=== PATIENT | female | born 1960 | race American Indian/Alaskan Native ===

== ENCOUNTER 2021-12-02 12:11 | Emergency (ER) | payer OTHER ==
[2021-12-02 13:52] VITALS: BP 136/75
--- NOTE | 2021-12-02 14:31 | Emergency Department Report ---
ED Animal Bite HPI - General Chief Complaint: Extremity Injury, Upper Stated Complaint: DOG BITE Time Seen by Provider: 12/02/21 14:12 Source: patient Mode of arrival: Ambulatory Limitations: No Limitations - History of Present Illness Initial Comments: 61-year-old -[place] female presents to the emergency room stating that she has been bitten by her dog while she was breaking up them from fighting. She states that her right hand was injured. Patient went to [facility] and was noted to have an open fracture of her right middle proximal phalanx. The wound dressed it and sent her over to be evaluated. Patient reports that she has no known drug allergies. She states she is up-to-date on her tetanus shot. MD Complaint: animal bite -: This afternoon Right: Hand Animal: dog Description: household pet Context: animals fighting Associated Symptoms: bleeding Treatments Prior to Arrival: wound dressing(s), irrigation - Related Data Previous Rx's Medication Instructions Recorded Last Taken Type Amoxicillin/Potassium Clav 1 each PO BID #20 tablet 12/02/21 Unknown Rx [Augmentin 875-125 Tablet] cephALEXin [Keflex] 500 mg PO Q8HR #30 cap 12/02/21 Unknown Rx traMADoL [Ultram 50 MG tab] 50 mg PO Q6HR PRN #12 tablet 12/02/21 Unknown Rx Allergies Allergy/AdvReac Type Severity Reaction Status Date / Time No Known Allergies Allergy Unverified 12/02/21 14:35 ED Review of Systems ROS: Stated complaint: DOG BITE Other details as noted in HPI Comment: All other systems reviewed and negative Constitutional: no symptoms reported ED Past Medical Hx - Medications Home Medications: Home Medications Medication Instructions Recorded Confirmed Last Taken Type Amoxicillin/Potassium Clav 1 each PO BID #20 tablet 12/02/21 Unknown Rx [Augmentin 875-125 Tablet] cephALEXin [Keflex] 500 mg PO Q8HR #30 cap 12/02/21 Unknown Rx traMADoL [Ultram 50 MG tab] 50 mg PO Q6HR PRN #12 tablet 12/02/21 Unknown Rx ED Physical Exam - General Limitations: No Limitations General appearance: alert, in no apparent distress - Head Head exam: Present: atraumatic, normocephalic - Eye Eye exam: Present: normal appearance - ENT ENT exam: Present: normal external ear exam - Neck Neck exam: Present: normal inspection, full ROM - Respiratory Respiratory exam: Absent: respiratory distress, accessory muscle use - Cardiovascular Cardiovascular Exam: Present: regular rate - Back Exam Back exam: Present: normal inspection - Neurological Exam Neurological exam: Present: alert, oriented X3, normal gait - Psychiatric Psychiatric exam: Present: normal affect, normal mood ED Course Vital Signs 12/02/21 13:51 Temperature 98.6 F Pulse Rate 75 Respiratory 15 Rate Blood Pressure 136/75 O2 Sat by Pulse 97 Oximetry Critical care attestation.: If time is entered above; I have spent that time in minutes in the direct care of this critically ill patient, excluding procedure time. ED Disposition Clinical Impression: Dog bite of hand Qualifiers: Encounter type: initial encounter Laterality: right Qualified Code(s): S61.451A - Open bite of right hand, initial encounter; W54.0XXA - Bitten by dog, initial encounter Proximal phalanx fracture of finger Qualifiers: Encounter type: initial encounter Finger: middle finger Fracture type: open Fracture alignment: displaced Laterality: unspecified laterality Qualified Code(s): S62.618B - Displaced fracture of proximal phalanx of other finger, initial encounter for open fracture Disposition: 01 HOME / SELF CARE / HOMELESS Is pt being admited?: No Does the pt Need Aspirin: No Condition: Stable Instructions: Animal Bite, Adult, [id number], Finger Fracture, Adult, [id number], Cast or Splint Care, Adult, [id number] Additional Instructions: Please complete both antibiotics as prescribed. Pain medication as needed. Do not operate heavy machinery while taking pain medicine. Is very important to increase your fluid intake. Wear your splint. Follow-up with an orthopedist in the next 2 to 3 days. I have listed several below for your convenience. Prescriptions: Amoxicillin/Potassium Clav [Augmentin 875-125 Tablet] 1 each PO BID #20 tablet cephALEXin [Keflex] 500 mg PO Q8HR #30 cap traMADoL [Ultram 50 MG tab] 50 mg PO Q6HR PRN #12 tablet PRN Reason: Pain Referrals: VINCENT SPENCER MD [Staff Physician] - 3-5 Days [facility] [Provider Group] - 3-5 Days Forms: Work/School Release Form(ED) Time of Disposition: 14:41 ED Medical Decision Making - Medical Decision Making 61-year-old -[place] female presents to the emergency room stating that she has been bitten by her dog while she was breaking up them from fighting. She states that her right hand was injured. Patient went to [facility] and was noted to have an open fracture of her right middle proximal phalanx. The wound dressed it and sent her over to be evaluated. Patient reports that she has no known drug allergies. She states she is up-to-date on her tetanus shot. Patient will be referred to orthopedist. She will be placed on Keflex Augmentin placed in a finger splint and pain medication. Patient is instructed to keep wound clean and dry.
== END 2021-12-03 14:50 | disposition home or self-care (01) ==
LOC: ED 12:11
DX: S62.618 Displaced fracture of proximal phalanx of other finger (principal); W54.0XXA Bitten by dog, initial encounter; Y93.89 Activity, other specified; Y92.89 Other specified places as the place of occurrence of the external cause; Y99.8 Other external cause status
CPT/HCPCS: 99282